=== PATIENT | male | born 1955 | race Caucasian/White ===

== ENCOUNTER 2023-12-11 10:25 | Inpatient (IN) ==
[2023-12-11] MEDS ORDERED: IOPAMIDOL 100 ML BOTTLE IV ONE (10:26)
[2023-12-11 11:36] LABS: Basophils # (Auto) 0.05 K/mcL (0.00-0.30); Basophils % (Auto) 0.6 % (0.0-2.0); Eosinophils # (Auto) 0.24 K/mcL (0.00-0.70); Eosinophils % (Auto) 3.1 % (0.0-7.0); Hematocrit 41.1 % (40.1-51.0); Hemoglobin 13.4 g/dL (13.7-17.5); Lymphocytes # (Auto) 1.25 K/mcL (1.50-4.80); Mean Cell Volume 110.5 fL (80.0-100.0); Mean Corpuscular HGB Conc 32.6 g/dL (31.0-36.0); Mean Platelet Volume 9.8 fL (8.8-12.5); Monocytes # (Auto) 0.65 K/mcL (0.10-0.90); Monocytes % (Auto) 8.3 % (1.0-12.0); Neutrophils % (Auto) 71.6 % (38.0-78.0); Platelet Count 179 K/mcL (140-440); RBC 3.72 M/mcL (4.63-6.08); Red Cell Distribution Width 13.2 % (11.5-14.5); WBC 7.8 K/mcL (4.5-11.0)
[2023-12-11] MEDS: 0.9 % SODIUM CHLORIDE 1,000 ML IV ONE (12:00)
[2023-12-11 12:11] LABS: ALT/SGPT 55 U/L (<40); AST/SGOT 210 U/L (<40); Albumin 3.4 gm/dL (3.2-5.2); Alkaline Phosphatase 106 U/L (39-117); Bilirubin,Total 0.8 mg/dL (0.1-1.0); Blood Urea Nitrogen 6 mg/dL (8-23); Calcium 8.6 mg/dL (8.6-10.4); Carbon Dioxide 25 mmol/L (22-30); Chloride 98 mmol/L (96-108); Globulin 3.5 gm/dL (2.2-3.7); Glomerular Filtration Rate 93; Glucose 135 mg/dL (70-105)
[2023-12-11] MEDS: cefTRIAXone 1 GM VIAL IV ONE (12:51)
[2023-12-11 12:57] LABS: Thyroid Stimulating Hormone 3.82 uIU/mL (0.27-5.01)
[2023-12-11 14:00] LABS: Free T4 (Free Thyroxine) 1.19 ng/dL (0.93-1.70)
[2023-12-11 16:33] LABS: Alcohol, Blood 84.3 mg/dL; Alcohol,Blood 0.084 gm/dL (<0.010)
[2023-12-11] MEDS: PIPERACILLIN SODIUM/TAZOBACTAM 3.375 GM in DEXTROSE 5% IN WATER 50 ML IV ONE (16:45)
[2023-12-11] MEDS: 0.9 % SODIUM CHLORIDE 250 ML ONE (16:56)
[2023-12-11] MEDS: morphine 4 MG/ML VIAL IV ONE (16:56)
[2023-12-11] MEDS: metroNIDAZOLE 500 MG/100 ML BAG IV ONE (17:42)
[2023-12-11] MEDS: VANCOMYCIN 1,000 MG in 0.9 % SODIUM CHLORIDE 250 ML IV ONE ×2 (19:00→21:56)
[2023-12-11] MEDS ORDERED: IPRATROPIUM/ALBUTEROL 3 ML AMPUL.NEB NEB PRN (20:36)
[2023-12-11] MEDS ORDERED: DEXTROSE 31 GM ORAL.SUSP PO PRN (20:36)
[2023-12-11] MEDS ORDERED: METOPROLOL TARTRATE 5 MG/5 ML VIAL IV PRN (20:36)
[2023-12-11] MEDS ORDERED: DEXTROSE 50% 50 ML VIAL IV PRN (20:36)
[2023-12-11] MEDS ORDERED: ONDANSETRON 4 MG/2 ML VIAL IV PRN (20:36)
[2023-12-11] MEDS ORDERED: VANCOMYCIN PER PHARMACY IV SCH (20:36)
[2023-12-11] MEDS: 0.9 % SODIUM CHLORIDE 1,000 ML IV SCH (20:59)
[2023-12-11] MEDS ORDERED: VANCOMYCIN 500 MG in 0.9 % SODIUM CHLORIDE 100 ML IV ONE (21:00)
[2023-12-11] MEDS: INSULIN LISPRO 1 UNIT/0.01 ML UNIT SQ SCH (21:13)
[2023-12-11] MEDS: METOPROLOL TARTRATE 25 MG TABLET PO SCH (21:18)
[2023-12-11] MEDS: SENNOSIDES 1 TABLET PO SCH (21:18)
[2023-12-11] MEDS: DOCUSATE SODIUM 100 MG CAPSULE PO SCH (21:18)
[2023-12-11] MEDS: PIPERACILLIN SODIUM/TAZOBACTAM 3.375 GM in 0.9 % SODIUM CHLORIDE 100 ML IV SCH (22:30)
[2023-12-12] MEDS: 0.9 % SODIUM CHLORIDE 10 ML SYRINGE IV SCH (00:04)
[2023-12-12] MEDS: morphine 4 MG/ML VIAL IV PRN (03:18)
[2023-12-12 06:28] LABS: Basophils # (Auto) 0.03 K/mcL (0.00-0.30); Basophils % (Auto) 0.5 % (0.0-2.0); Eosinophils # (Auto) 0.17 K/mcL (0.00-0.70); Eosinophils % (Auto) 2.7 % (0.0-7.0); Hemoglobin 11.4 g/dL (13.7-17.5); Lymphocytes # (Auto) 1.26 K/mcL (1.50-4.80); Lymphocytes % (Auto) 19.9 % (15.5-49.0); Mean Cell Volume 110.8 fL (80.0-100.0); Mean Corpuscular HGB Conc 32.6 g/dL (31.0-36.0); Monocytes # (Auto) 0.76 K/mcL (0.10-0.90); Neutrophils % (Auto) 64.7 % (38.0-78.0); Platelet Count 121 K/mcL (140-440); RBC 3.16 M/mcL (4.63-6.08); Red Cell Distribution Width 13.2 % (11.5-14.5); WBC 6.3 K/mcL (4.5-11.0)
[2023-12-12 06:45] LABS: ALT/SGPT 36 U/L (<40); AST/SGOT 126 U/L (<40); Albumin 2.9 gm/dL (3.2-5.2); Alkaline Phosphatase 84 U/L (39-117); Blood Urea Nitrogen 9 mg/dL (8-23); Calcium 7.6 mg/dL (8.6-10.4); Carbon Dioxide 29 mmol/L (22-30); Chloride 102 mmol/L (96-108); Globulin 2.8 gm/dL (2.2-3.7); Glomerular Filtration Rate 98; Glucose 104 mg/dL (70-105)
[2023-12-12 07:27] LABS: Estimated Average Glucose(eAG) 91 mg/dL; Hemoglobin A1C 4.8 % Hgb (4.0-6.0)
[2023-12-12] MEDS: oxyCODONE IR 5 MG TABLET PO PRN (10:18)
[2023-12-12] MEDS: VANCOMYCIN 1,500 MG in 0.9 % SODIUM CHLORIDE 500 ML IV SCH (10:43)
[2023-12-12] MEDS: traZODone HCL 50 MG TABLET PO PRN (23:19)
[2023-12-13 06:29] LABS: Basophils # (Auto) 0.03 K/mcL (0.00-0.30); Basophils % (Auto) 0.4 % (0.0-2.0); Eosinophils # (Auto) 0.27 K/mcL (0.00-0.70); Eosinophils % (Auto) 3.9 % (0.0-7.0); Hematocrit 32.8 % (40.1-51.0); Hemoglobin 10.9 g/dL (13.7-17.5); Lymphocytes # (Auto) 1.38 K/mcL (1.50-4.80); Mean Cell Volume 110.8 fL (80.0-100.0); Mean Corpuscular HGB Conc 33.2 g/dL (31.0-36.0); Mean Platelet Volume 10.2 fL (8.8-12.5); Monocytes # (Auto) 0.81 K/mcL (0.10-0.90); Monocytes % (Auto) 11.8 % (1.0-12.0); Neutrophils % (Auto) 63.6 % (38.0-78.0); Platelet Count 97 K/mcL (140-440); RBC 2.96 M/mcL (4.63-6.08); Red Cell Distribution Width 13.3 % (11.5-14.5); WBC 6.9 K/mcL (4.5-11.0)
[2023-12-13 06:41] LABS: ALT/SGPT 26 U/L (<40); AST/SGOT 93 U/L (<40); Albumin 2.7 gm/dL (3.2-5.2); Alkaline Phosphatase 82 U/L (39-117); Bilirubin,Total 0.9 mg/dL (0.1-1.0); Blood Urea Nitrogen 8 mg/dL (8-23); Calcium 7.4 mg/dL (8.6-10.4); Carbon Dioxide 26 mmol/L (22-30); Chloride 101 mmol/L (96-108); Globulin 2.7 gm/dL (2.2-3.7); Glomerular Filtration Rate 98; Glucose 104 mg/dL (70-105)
[2023-12-13 07:53] LABS: Iron 51 ug/dL (61-157); TIBC Calculation 115 ug/dl (228-428); Transferrin % Saturation 44 % (20-50)
[2023-12-13] MEDS: SIMVASTATIN 40 MG TABLET PO SCH (20:20)
[2023-12-13] MEDS: APIXABAN 5 MG TABLET PO SCH (20:20)
[2023-12-13] MEDS ORDERED: IBUPROFEN 600 MG TABLET PO PRN (21:24)
[2023-12-14 06:40] LABS: ALT/SGPT 20 U/L (<40); AST/SGOT 74 U/L (<40); Albumin 2.5 gm/dL (3.2-5.2); Albumin/Globulin Ratio 0.9 (1.0-2.3); Alkaline Phosphatase 73 U/L (39-117); Bilirubin,Total 0.9 mg/dL (0.1-1.0); Blood Urea Nitrogen 8 mg/dL (8-23); Calcium 7.5 mg/dL (8.6-10.4); Carbon Dioxide 26 mmol/L (22-30); Chloride 99 mmol/L (96-108); Globulin 2.9 gm/dL (2.2-3.7); Glomerular Filtration Rate 104; Glucose 111 mg/dL (70-105)
[2023-12-14 07:05] LABS: Basophils # (Auto) 0.03 K/mcL (0.00-0.30); Basophils % (Auto) 0.4 % (0.0-2.0); Eosinophils # (Auto) 0.32 K/mcL (0.00-0.70); Eosinophils % (Auto) 4.3 % (0.0-7.0); Hematocrit 33.9 % (40.1-51.0); Hemoglobin 11.1 g/dL (13.7-17.5); Lymphocytes # (Auto) 1.35 K/mcL (1.50-4.80); Lymphocytes % (Auto) 18.1 % (15.5-49.0); Mean Cell Volume 111.1 fL (80.0-100.0); Mean Corpuscular HGB Conc 32.7 g/dL (31.0-36.0); Mean Platelet Volume 10.6 fL (8.8-12.5); Monocytes # (Auto) 1.03 K/mcL (0.10-0.90); Monocytes % (Auto) 13.8 % (1.0-12.0); Platelet Count 103 K/mcL (140-440); RBC 3.05 M/mcL (4.63-6.08); WBC 7.5 K/mcL (4.5-11.0)
[2023-12-14] MEDS: FOLIC ACID 1 MG TABLET PO SCH (08:13)
[2023-12-14] MEDS: VITAMIN D3 25 MCG TABLET PO SCH (08:13)
[2023-12-14] MEDS: ACETAMINOPHEN 325 MG TABLET PO PRN (08:26)
[2023-12-14] MEDS ORDERED: [UNRECOGNIZED DRUG - OTHER] PO SCH (09:00)
[2023-12-14] MEDS ORDERED: MILK THISTLE PO SCH (09:00)
[2023-12-14] MEDS ORDERED: POTASSIUM PO SCH (09:00)
[2023-12-14] MEDS: diphenhydrAMINE 25 MG CAPSULE PO PRN (15:46)
[2023-12-15 06:13] LABS: Basophils # (Auto) 0.03 K/mcL (0.00-0.30); Basophils % (Auto) 0.4 % (0.0-2.0); Eosinophils # (Auto) 0.47 K/mcL (0.00-0.70); Eosinophils % (Auto) 6.9 % (0.0-7.0); Hematocrit 32.2 % (40.1-51.0); Hemoglobin 10.9 g/dL (13.7-17.5); Lymphocytes # (Auto) 1.48 K/mcL (1.50-4.80); Lymphocytes % (Auto) 21.8 % (15.5-49.0); Mean Corpuscular HGB Conc 33.9 g/dL (31.0-36.0); Mean Platelet Volume 10.4 fL (8.8-12.5); Monocytes # (Auto) 1.26 K/mcL (0.10-0.90); Monocytes % (Auto) 18.6 % (1.0-12.0); Neutrophils % (Auto) 52.2 % (38.0-78.0); Platelet Count 116 K/mcL (140-440); Red Cell Distribution Width 13.2 % (11.5-14.5); WBC 6.8 K/mcL (4.5-11.0)
[2023-12-15 06:39] LABS: ALT/SGPT 15 U/L (<40); AST/SGOT 55 U/L (<40); Albumin 2.5 gm/dL (3.2-5.2); Albumin/Globulin Ratio 0.9 (1.0-2.3); Alkaline Phosphatase 68 U/L (39-117); Bilirubin,Total 0.8 mg/dL (0.1-1.0); Blood Urea Nitrogen 7 mg/dL (8-23); Calcium 7.7 mg/dL (8.6-10.4); Carbon Dioxide 26 mmol/L (22-30); Chloride 101 mmol/L (96-108); Globulin 2.9 gm/dL (2.2-3.7); Glomerular Filtration Rate 98; Glucose 104 mg/dL (70-105)
[2023-12-15] MEDS: CARBOXYMETHYLCELLULOSE SODIUM 1 EACH DROPER.GEL OP PRN (11:51)
[2023-12-16 06:42] LABS: Basophils # (Auto) 0.05 K/mcL (0.00-0.30); Basophils % (Auto) 0.8 % (0.0-2.0); Eosinophils # (Auto) 0.41 K/mcL (0.00-0.70); Eosinophils % (Auto) 6.4 % (0.0-7.0); Hematocrit 33.3 % (40.1-51.0); Lymphocytes # (Auto) 1.08 K/mcL (1.50-4.80); Lymphocytes % (Auto) 16.9 % (15.5-49.0); Mean Platelet Volume 10.6 fL (8.8-12.5); Monocytes # (Auto) 1.19 K/mcL (0.10-0.90); Monocytes % (Auto) 18.6 % (1.0-12.0); Neutrophils % (Auto) 57.1 % (38.0-78.0); Platelet Count 143 K/mcL (140-440); Red Cell Distribution Width 13.3 % (11.5-14.5); WBC 6.4 K/mcL (4.5-11.0)
[2023-12-16 06:54] LABS: ALT/SGPT 12 U/L (<40); AST/SGOT 45 U/L (<40); Albumin 2.5 gm/dL (3.2-5.2); Albumin/Globulin Ratio 0.9 (1.0-2.3); Alkaline Phosphatase 62 U/L (39-117); Bilirubin,Direct 0.4 mg/dL (<0.3); Bilirubin,Total 0.7 mg/dL (0.1-1.0); Blood Urea Nitrogen 7 mg/dL (8-23); Calcium 8.1 mg/dL (8.6-10.4); Carbon Dioxide 27 mmol/L (22-30); Chloride 103 mmol/L (96-108); Globulin 2.9 gm/dL (2.2-3.7); Glomerular Filtration Rate 104; Glucose 102 mg/dL (70-105); Lactate Dehydrogenase 154 U/L (135-225); Phosphorous 2.7 mg/dL (2.5-4.5); Triglycerides 70 mg/dL (<150); Uric Acid 2.4 mg/dL (2.5-8.0)
[2023-12-16] MEDS: MAGNESIUM SULFATE 2 GM/50 ML BAG IV ONE (08:05)
[2023-12-16] MEDS ORDERED: POTASSIUM CHLORIDE 40 MEQ in DEXTROSE 5% IN WATER 500 ML IV PRN (08:24)
[2023-12-16] MEDS ORDERED: POTASSIUM CHLORIDE 20 MEQ TABLET PO PRN (08:24)
[2023-12-16] MEDS: LISINOPRIL 5 MG TABLET PO SCH (08:55)
[2023-12-16] MEDS: FOLIC ACID 1 MG TABLET PO SCH (08:56)
[2023-12-16] MEDS ORDERED: FOLIC ACID 1 MG TABLET PO SCH (09:00)
[2023-12-16] MEDS: ALBUMIN HUMAN 12.5 GM/50 ML VIAL IV SCH (11:11)
[2023-12-16] MEDS: FUROSEMIDE 40 MG/4 ML VIAL IV SCH (12:05)
[2023-12-16] MEDS: MAGNESIUM SULFATE 2 GM/50 ML BAG IV PRN (17:40)
[2023-12-17 07:13] LABS: ALT/SGPT 10 U/L (<40); AST/SGOT 42 U/L (<40); Albumin 2.6 gm/dL (3.2-5.2); Albumin/Globulin Ratio 0.9 (1.0-2.3); Alkaline Phosphatase 58 U/L (39-117); Bilirubin,Direct 0.3 mg/dL (<0.3); Bilirubin,Total 0.7 mg/dL (0.1-1.0); Blood Urea Nitrogen 7 mg/dL (8-23); Carbon Dioxide 25 mmol/L (22-30); Chloride 103 mmol/L (96-108); Globulin 2.8 gm/dL (2.2-3.7); Glomerular Filtration Rate 104; Glucose 106 mg/dL (70-105); Lactate Dehydrogenase 162 U/L (135-225); Phosphorous 2.1 mg/dL (2.5-4.5); Triglycerides 76 mg/dL (<150); Uric Acid 2.4 mg/dL (2.5-8.0)
[2023-12-17] MEDS: FOLIC ACID 1 MG TABLET PO SCH (08:59)
[2023-12-17] MEDS: MAGNESIUM SULFATE 1 GM/100 ML BAG IV SCH (08:59)
[2023-12-17] MEDS: NEUTRA PHOS 1 PACKET PO SCH (08:59)
[2023-12-17] MEDS: PHOSPHORUS 250 MG TABLET PO SCH (09:00)
== END 2023-12-17 11:35 | disposition home or self-care (01) | DRG 872 ==
LOC: ED 10:25 → MEDSUR 20:20
PROVIDERS: ADMIT Internal Medicine; ATTEND Internal Medicine

== ENCOUNTER 2024-04-10 12:27 | Inpatient (IN) ==
[2024-04-10] MEDS ORDERED: IOPAMIDOL 100 ML BOTTLE IV ONE (12:28)
[2024-04-10 13:20] LABS: Basophils # (Auto) 0.02 K/mcL (0.00-0.30); Basophils % (Auto) 0.1 % (0.0-2.0); Eosinophils # (Auto) 0 K/mcL (0.00-0.70); Eosinophils % (Auto) 0 % (0.0-7.0); Hemoglobin 12.9 g/dL (13.7-17.5); Lymphocytes # (Auto) 0.62 K/mcL (1.50-4.80); Lymphocytes % (Auto) 4.4 % (15.5-49.0); Mean Cell Volume 103.5 fL (80.0-100.0); Mean Corpuscular HGB Conc 33.9 g/dL (31.0-36.0); Mean Platelet Volume 9.8 fL (8.8-12.5); Monocytes # (Auto) 0.84 K/mcL (0.10-0.90); Neutrophils % (Auto) 88.9 % (38.0-78.0); Platelet Count 157 K/mcL (140-440); RBC 3.67 M/mcL (4.63-6.08); Red Cell Distribution Width 12.9 % (11.5-14.5)
[2024-04-10 13:34] LABS: ALT/SGPT 9 U/L (<40); AST/SGOT 41 U/L (<40); Albumin 3.3 gm/dL (3.2-5.2); Albumin/Globulin Ratio 1.1 (1.0-2.3); Alkaline Phosphatase 48 U/L (39-117); Bilirubin,Total 0.8 mg/dL (0.1-1.0); Blood Urea Nitrogen 17 mg/dL (8-23); Calcium 8.6 mg/dL (8.6-10.4); Carbon Dioxide 23 mmol/L (22-30); Chloride 92 mmol/L (96-108); Globulin 3.1 gm/dL (2.2-3.7); Glomerular Filtration Rate 88; Glucose 180 mg/dL (70-105); Potassium 3.8 mmol/L (3.3-5.1); Sodium 128 mmol/L (133-145)
[2024-04-10] MEDS: PIPERACILLIN SODIUM/TAZOBACTAM 4.5 GM in DEXTROSE 5% IN WATER 50 ML IV ONE (14:30)
[2024-04-10] MEDS: 0.9 % SODIUM CHLORIDE 2,535 ML IV ONE (14:30)
[2024-04-10 14:31] LABS: C-Reactive Protein 30.7 mg/dL (0.03-0.80)
[2024-04-10 16:17] LABS: Prolactin 16.5 ng/mL (4.0-15.2)
[2024-04-10] MEDS ORDERED: ONDANSETRON 4 MG/2 ML VIAL IV PRN (18:53)
[2024-04-10] MEDS ORDERED: DEXTROSE 31 GM ORAL.SUSP PO PRN (18:53)
[2024-04-10] MEDS ORDERED: DEXTROSE 50% 50 ML VIAL IV PRN (18:53)
[2024-04-10] MEDS: INSULIN LISPRO 1 UNIT/0.01 ML UNIT SQ SCH (21:00)
[2024-04-10] MEDS: Sacubitril-Valsartan [Entresto] 97-103 mg tablet PO SCH (21:01)
[2024-04-10] MEDS: SENNOSIDES 1 TABLET PO SCH (21:01)
[2024-04-10] MEDS: DOCUSATE SODIUM 100 MG CAPSULE PO SCH (21:01)
[2024-04-10] MEDS: HYDROcodone/APAP 5/325MG TABLET PO PRN (21:37)
[2024-04-10] MEDS: ACETAMINOPHEN 325 MG TABLET PO PRN (21:37)
[2024-04-10] MEDS: APIXABAN 5 MG TABLET PO SCH (21:37)
[2024-04-10] MEDS: ceFAZolin 1 GM VIAL IV SCH (21:37)
[2024-04-10] MEDS: 0.9 % SODIUM CHLORIDE 10 ML SYRINGE IV SCH (22:00)
[2024-04-11 06:12] LABS: Basophils # (Auto) 0.03 K/mcL (0.00-0.30); Basophils % (Auto) 0.3 % (0.0-2.0); Eosinophils # (Auto) 0.07 K/mcL (0.00-0.70); Eosinophils % (Auto) 0.8 % (0.0-7.0); Hematocrit 35.6 % (40.1-51.0); Hemoglobin 12.3 g/dL (13.7-17.5); Lymphocytes # (Auto) 0.86 K/mcL (1.50-4.80); Lymphocytes % (Auto) 9.5 % (15.5-49.0); Mean Cell Volume 102.6 fL (80.0-100.0); Mean Corpuscular HGB Conc 34.6 g/dL (31.0-36.0); Mean Platelet Volume 10.4 fL (8.8-12.5); Monocytes % (Auto) 9.9 % (1.0-12.0); Neutrophils % (Auto) 78.9 % (38.0-78.0); Platelet Count 146 K/mcL (140-440); RBC 3.47 M/mcL (4.63-6.08); Red Cell Distribution Width 12.8 % (11.5-14.5); WBC 9.1 K/mcL (4.5-11.0)
[2024-04-11 06:30] LABS: ALT/SGPT 7 U/L (<40); AST/SGOT 38 U/L (<40); Alkaline Phosphatase 48 U/L (39-117); Bilirubin,Direct 0.3 mg/dL (<0.3); Bilirubin,Total 0.6 mg/dL (0.1-1.0); Blood Urea Nitrogen 14 mg/dL (8-23); Calcium 8.3 mg/dL (8.6-10.4); Carbon Dioxide 24 mmol/L (22-30); Chloride 95 mmol/L (96-108); Globulin 2.9 gm/dL (2.2-3.7); Glomerular Filtration Rate 93; Glucose 98 mg/dL (70-105); Lactate Dehydrogenase 149 U/L (135-225); Phosphorous 2.2 mg/dL (2.5-4.5); Potassium 3.5 mmol/L (3.3-5.1); Sodium 129 mmol/L (133-145); Triglycerides 85 mg/dL (<150); Uric Acid 3.4 mg/dL (2.5-8.0)
[2024-04-11] MEDS: ATORVASTATIN 20 MG TABLET PO SCH (08:44)
[2024-04-11] MEDS ORDERED: ENOXAPARIN 40 MG/0.4 ML SYRINGE SQ SCH (09:00)
[2024-04-11] MEDS: LOSARTAN 25 MG TABLET PO SCH (10:51)
[2024-04-12 05:52] LABS: Basophils # (Auto) 0.02 K/mcL (0.00-0.30); Basophils % (Auto) 0.2 % (0.0-2.0); Eosinophils # (Auto) 0.21 K/mcL (0.00-0.70); Eosinophils % (Auto) 2.2 % (0.0-7.0); Hematocrit 35.7 % (40.1-51.0); Hemoglobin 12.2 g/dL (13.7-17.5); Lymphocytes # (Auto) 0.92 K/mcL (1.50-4.80); Lymphocytes % (Auto) 9.4 % (15.5-49.0); Mean Cell Volume 102.9 fL (80.0-100.0); Mean Corpuscular HGB Conc 34.2 g/dL (31.0-36.0); Mean Platelet Volume 10.1 fL (8.8-12.5); Monocytes # (Auto) 1.24 K/mcL (0.10-0.90); Monocytes % (Auto) 12.7 % (1.0-12.0); Neutrophils % (Auto) 74.9 % (38.0-78.0); Platelet Count 163 K/mcL (140-440); RBC 3.47 M/mcL (4.63-6.08); Red Cell Distribution Width 12.7 % (11.5-14.5); WBC 9.7 K/mcL (4.5-11.0)
[2024-04-12 06:16] LABS: ALT/SGPT 8 U/L (<40); AST/SGOT 51 U/L (<40); Alkaline Phosphatase 63 U/L (39-117); Bilirubin,Direct 0.3 mg/dL (<0.3); Bilirubin,Total 0.5 mg/dL (0.1-1.0); Blood Urea Nitrogen 9 mg/dL (8-23); Calcium 8.7 mg/dL (8.6-10.4); Carbon Dioxide 25 mmol/L (22-30); Chloride 95 mmol/L (96-108); Globulin 3.1 gm/dL (2.2-3.7); Glomerular Filtration Rate 98; Glucose 120 mg/dL (70-105); Lactate Dehydrogenase 144 U/L (135-225); Phosphorous 2.3 mg/dL (2.5-4.5); Potassium 3.3 mmol/L (3.3-5.1); Sodium 131 mmol/L (133-145); Triglycerides 86 mg/dL (<150); Uric Acid 3.2 mg/dL (2.5-8.0)
[2024-04-12] MEDS: MAGNESIUM SULFATE 2 GM/50 ML BAG IV ONE (09:42)
[2024-04-12] MEDS: LINEZOLID 600 MG/300 ML BAG IV SCH (12:22)
[2024-04-13 07:04] LABS: ALT/SGPT < 5 U/L (<40); AST/SGOT 46 U/L (<40); Albumin 3.1 gm/dL (3.2-5.2); Alkaline Phosphatase 72 U/L (39-117); Bilirubin,Direct 0.3 mg/dL (<0.3); Bilirubin,Total 0.6 mg/dL (0.1-1.0); Blood Urea Nitrogen 7 mg/dL (8-23); Carbon Dioxide 28 mmol/L (22-30); Chloride 94 mmol/L (96-108); Globulin 3.1 gm/dL (2.2-3.7); Glomerular Filtration Rate 98; Glucose 131 mg/dL (70-105); Lactate Dehydrogenase 148 U/L (135-225); Phosphorous 2.3 mg/dL (2.5-4.5); Potassium 3.3 mmol/L (3.3-5.1); Sodium 131 mmol/L (133-145); Triglycerides 78 mg/dL (<150); Uric Acid 2.9 mg/dL (2.5-8.0)
[2024-04-13 07:05] LABS: Basophils # (Auto) 0.04 K/mcL (0.00-0.30); Basophils % (Auto) 0.4 % (0.0-2.0); Eosinophils # (Auto) 0.27 K/mcL (0.00-0.70); Eosinophils % (Auto) 2.9 % (0.0-7.0); Hematocrit 37.2 % (40.1-51.0); Hemoglobin 12.6 g/dL (13.7-17.5); Lymphocytes # (Auto) 1.01 K/mcL (1.50-4.80); Lymphocytes % (Auto) 10.8 % (15.5-49.0); Mean Corpuscular HGB Conc 33.9 g/dL (31.0-36.0); Mean Platelet Volume 10.5 fL (8.8-12.5); Monocytes # (Auto) 1.37 K/mcL (0.10-0.90); Monocytes % (Auto) 14.6 % (1.0-12.0); Neutrophils % (Auto) 70.7 % (38.0-78.0); Platelet Count 206 K/mcL (140-440); RBC 3.61 M/mcL (4.63-6.08); Red Cell Distribution Width 12.7 % (11.5-14.5); WBC 9.4 K/mcL (4.5-11.0)
[2024-04-13] MEDS: MAGNESIUM SULFATE 2 GM/50 ML BAG IV ONE ×2 (10:01→10:37)
[2024-04-13] MEDS ORDERED: CARBOXYMETHYLCELLULOSE SODIUM 1 EACH DROPER.GEL OP PRN (10:51)
[2024-04-15 06:41] LABS: ALT/SGPT < 5 U/L (<40); AST/SGOT 34 U/L (<40); Albumin 2.9 gm/dL (3.2-5.2); Alkaline Phosphatase 63 U/L (39-117); Bilirubin,Direct 0.3 mg/dL (<0.3); Bilirubin,Total 0.5 mg/dL (0.1-1.0); Blood Urea Nitrogen 6 mg/dL (8-23); Calcium 8.9 mg/dL (8.6-10.4); Carbon Dioxide 28 mmol/L (22-30); Chloride 96 mmol/L (96-108); Glomerular Filtration Rate 98; Glucose 109 mg/dL (70-105); Lactate Dehydrogenase 152 U/L (135-225); Phosphorous 2.4 mg/dL (2.5-4.5); Potassium 3.5 mmol/L (3.3-5.1); Sodium 133 mmol/L (133-145); Triglycerides 83 mg/dL (<150); Uric Acid 3.1 mg/dL (2.5-8.0)
[2024-04-15] MEDS: HYDROmorphone 0.5 MG/0.5 ML SYRINGE IV PRN (07:47)
[2024-04-15] MEDS ORDERED: MAGNESIUM SULFATE 2 GM/50 ML BAG IV ONE (08:42)
[2024-04-15] MEDS: LINEZOLID 600 MG TABLET PO SCH (10:38)
[2024-04-15] MEDS: MAGNESIUM SULFATE 2 GM/50 ML BAG IV ONE (10:41)
[2024-04-15] MEDS: CEPHALEXIN 500 MG CAPSULE PO SCH (14:41)
[2024-04-16 05:59] LABS: Basophils # (Auto) 0.05 K/mcL (0.00-0.30); Basophils % (Auto) 0.5 % (0.0-2.0); Eosinophils # (Auto) 0.21 K/mcL (0.00-0.70); Eosinophils % (Auto) 2.1 % (0.0-7.0); Hematocrit 34.5 % (40.1-51.0); Hemoglobin 11.5 g/dL (13.7-17.5); Lymphocytes # (Auto) 1.39 K/mcL (1.50-4.80); Lymphocytes % (Auto) 13.7 % (15.5-49.0); Mean Cell Volume 103.6 fL (80.0-100.0); Mean Corpuscular HGB Conc 33.3 g/dL (31.0-36.0); Mean Platelet Volume 9.4 fL (8.8-12.5); Monocytes # (Auto) 1.16 K/mcL (0.10-0.90); Monocytes % (Auto) 11.4 % (1.0-12.0); Neutrophils % (Auto) 71.9 % (38.0-78.0); Platelet Count 374 K/mcL (140-440); RBC 3.33 M/mcL (4.63-6.08); Red Cell Distribution Width 12.8 % (11.5-14.5); WBC 10.2 K/mcL (4.5-11.0)
[2024-04-16 06:12] LABS: ALT/SGPT < 5 U/L (<40); AST/SGOT 34 U/L (<40); Albumin 2.9 gm/dL (3.2-5.2); Albumin/Globulin Ratio 0.9 (1.0-2.3); Alkaline Phosphatase 67 U/L (39-117); Bilirubin,Direct 0.3 mg/dL (<0.3); Bilirubin,Total 0.6 mg/dL (0.1-1.0); Blood Urea Nitrogen 7 mg/dL (8-23); Calcium 8.8 mg/dL (8.6-10.4); Carbon Dioxide 29 mmol/L (22-30); Chloride 96 mmol/L (96-108); Globulin 3.2 gm/dL (2.2-3.7); Glomerular Filtration Rate 98; Glucose 143 mg/dL (70-105); Lactate Dehydrogenase 150 U/L (135-225); Phosphorous 2.4 mg/dL (2.5-4.5); Potassium 3.8 mmol/L (3.3-5.1); Sodium 131 mmol/L (133-145); Triglycerides 86 mg/dL (<150); Uric Acid 3.1 mg/dL (2.5-8.0)
[2024-04-16] MEDS: MAGNESIUM SULFATE 2 GM/50 ML BAG IV SCH (09:10)
[2024-04-16] MEDS: METOPROLOL SUCCINATE 50 MG TAB.XL.24H PO SCH (10:37)
[2024-04-17 07:13] LABS: Basophils # (Auto) 0.06 K/mcL (0.00-0.30); Basophils % (Auto) 0.5 % (0.0-2.0); Eosinophils # (Auto) 0.19 K/mcL (0.00-0.70); Eosinophils % (Auto) 1.7 % (0.0-7.0); Hematocrit 33.2 % (40.1-51.0); Hemoglobin 11.2 g/dL (13.7-17.5); Lymphocytes # (Auto) 1.28 K/mcL (1.50-4.80); Lymphocytes % (Auto) 11.3 % (15.5-49.0); Mean Cell Volume 102.8 fL (80.0-100.0); Mean Corpuscular HGB Conc 33.7 g/dL (31.0-36.0); Mean Platelet Volume 9.5 fL (8.8-12.5); Monocytes # (Auto) 1.29 K/mcL (0.10-0.90); Monocytes % (Auto) 11.4 % (1.0-12.0); Neutrophils % (Auto) 74.8 % (38.0-78.0); Platelet Count 403 K/mcL (140-440); RBC 3.23 M/mcL (4.63-6.08); Red Cell Distribution Width 12.6 % (11.5-14.5); WBC 11.3 K/mcL (4.5-11.0)
[2024-04-17 07:15] LABS: Blood Urea Nitrogen 6 mg/dL (8-23); C-Reactive Protein 6.42 mg/dL (0.03-0.80); Calcium 8.9 mg/dL (8.6-10.4); Carbon Dioxide 27 mmol/L (22-30); Chloride 95 mmol/L (96-108); Glomerular Filtration Rate 104; Glucose 103 mg/dL (70-105); Sodium 130 mmol/L (133-145)
[2024-04-17] MEDS: MAGNESIUM SULFATE 2 GM/50 ML BAG IV ONE ×2 (09:16→09:18)
[2024-04-17 15:01] LABS: Basophils # (Auto) 0.05 K/mcL (0.00-0.30); Basophils % (Auto) 0.4 % (0.0-2.0); Eosinophils # (Auto) 0.22 K/mcL (0.00-0.70); Eosinophils % (Auto) 1.8 % (0.0-7.0); Hemoglobin 11.9 g/dL (13.7-17.5); Lymphocytes # (Auto) 1.11 K/mcL (1.50-4.80); Lymphocytes % (Auto) 9.1 % (15.5-49.0); Mean Cell Volume 103.7 fL (80.0-100.0); Mean Corpuscular HGB Conc 33.1 g/dL (31.0-36.0); Monocytes # (Auto) 1.23 K/mcL (0.10-0.90); Monocytes % (Auto) 10.1 % (1.0-12.0); Neutrophils % (Auto) 78.3 % (38.0-78.0); Platelet Count 421 K/mcL (140-440); RBC 3.47 M/mcL (4.63-6.08); Red Cell Distribution Width 12.7 % (11.5-14.5); WBC 12.2 K/mcL (4.5-11.0)
[2024-04-17 15:18] LABS: Blood Urea Nitrogen 7 mg/dL (8-23); Calcium 9.1 mg/dL (8.6-10.4); Carbon Dioxide 29 mmol/L (22-30); Chloride 96 mmol/L (96-108); Glomerular Filtration Rate 98; Glucose 161 mg/dL (70-105); Sodium 132 mmol/L (133-145)
[2024-04-18 06:50] LABS: Basophils # (Auto) 0.08 K/mcL (0.00-0.30); Basophils % (Auto) 0.7 % (0.0-2.0); Eosinophils # (Auto) 0.26 K/mcL (0.00-0.70); Eosinophils % (Auto) 2.3 % (0.0-7.0); Hematocrit 33.8 % (40.1-51.0); Hemoglobin 11.3 g/dL (13.7-17.5); Lymphocytes # (Auto) 1.33 K/mcL (1.50-4.80); Lymphocytes % (Auto) 11.6 % (15.5-49.0); Mean Cell Volume 103.4 fL (80.0-100.0); Mean Corpuscular HGB Conc 33.4 g/dL (31.0-36.0); Mean Platelet Volume 9.4 fL (8.8-12.5); Monocytes # (Auto) 1.27 K/mcL (0.10-0.90); Monocytes % (Auto) 11.1 % (1.0-12.0); Platelet Count 423 K/mcL (140-440); RBC 3.27 M/mcL (4.63-6.08); Red Cell Distribution Width 12.8 % (11.5-14.5); WBC 11.5 K/mcL (4.5-11.0)
[2024-04-18 06:56] LABS: C-Reactive Protein 5.24 mg/dL (0.03-0.80)
[2024-04-18 06:57] LABS: Blood Urea Nitrogen 6 mg/dL (8-23); Calcium 9.1 mg/dL (8.6-10.4); Carbon Dioxide 27 mmol/L (22-30); Chloride 95 mmol/L (96-108); Glomerular Filtration Rate 98; Glucose 108 mg/dL (70-105); Potassium 4.2 mmol/L (3.3-5.1); Sodium 129 mmol/L (133-145)
[2024-04-18] MEDS: 0.9 % SODIUM CHLORIDE 1,000 ML IV SCH (07:36)
[2024-04-18] MEDS: 0.9 % SODIUM CHLORIDE 500 ML IV SCH (08:09)
[2024-04-18] MEDS: SODIUM CHLORIDE 1 GM TABLET PO SCH (08:09)
[2024-04-18] MEDS: MAGNESIUM SULFATE 1 GM/100 ML BAG IV ONE (09:17)
[2024-04-18 13:06] LABS: Sodium 129 mmol/L (133-145)
[2024-04-18] MEDS: 0.9 % SODIUM CHLORIDE 250 ML IV ONE (14:12)
[2024-04-18 15:21] LABS: Sodium, Urine Random 100 mmol/L
[2024-04-18 15:34] LABS: Osmolality,Urine 296 mOSM/kg (80-1000)
[2024-04-19 06:50] LABS: Basophils # (Auto) 0.07 K/mcL (0.00-0.30); Basophils % (Auto) 0.7 % (0.0-2.0); Hematocrit 33.5 % (40.1-51.0); Hemoglobin 11.1 g/dL (13.7-17.5); Lymphocytes # (Auto) 1.55 K/mcL (1.50-4.80); Lymphocytes % (Auto) 15.6 % (15.5-49.0); Mean Cell Volume 102.4 fL (80.0-100.0); Mean Corpuscular HGB Conc 33.1 g/dL (31.0-36.0); Mean Platelet Volume 9.4 fL (8.8-12.5); Monocytes # (Auto) 1.07 K/mcL (0.10-0.90); Monocytes % (Auto) 10.8 % (1.0-12.0); Neutrophils % (Auto) 69.8 % (38.0-78.0); Platelet Count 404 K/mcL (140-440); RBC 3.27 M/mcL (4.63-6.08); Red Cell Distribution Width 12.8 % (11.5-14.5); WBC 9.9 K/mcL (4.5-11.0)
[2024-04-19 06:57] LABS: Blood Urea Nitrogen 7 mg/dL (8-23); C-Reactive Protein 4.21 mg/dL (0.03-0.80); Calcium 9.2 mg/dL (8.6-10.4); Carbon Dioxide 26 mmol/L (22-30); Chloride 98 mmol/L (96-108); Glomerular Filtration Rate 98; Glucose 107 mg/dL (70-105); Potassium 4.4 mmol/L (3.3-5.1); Sodium 134 mmol/L (133-145)
[2024-04-19] MEDS: MAGNESIUM SULFATE 24.36 MEQ in DEXTROSE 5% IN WATER 50 ML IV ONE (08:34)
== END 2024-04-19 12:41 | disposition home or self-care (01) | DRG 872 ==
LOC: ED 12:27 → MEDSUR 18:15
PROVIDERS: ADMIT Internal Medicine; ATTEND Internal Medicine